=== PATIENT | male | born 1965 | race Caucasian/White ===

== ENCOUNTER → 2017-03-10 | Outpatient (CLI) | payer OTHER ==
[~2017-03-10] MED LIST: NO MEDICATIONS
--- NOTE | ~2017-03-10 | MY26 ---
[facility] A Service of [facility] RADIOLOGY TEXT RESULTS PATIENT: FANNY AMAYA LOCATION: [facility] : 67 UNIT #: [id number] AGE: [address]: Bebo Trejo MD SEX: M ORDER DR: [id number] [facility] [address] [place], [place] [address] [id number] O MR#: [id number] #: [id number] NAME: FANNY AMAYA : 1965 SEX: M STUDY DATE/TIME: 03/10/2017 15:06 UNIT: [facility] ROOM: STUDY DESCRIPTION: [facility] DIAGNOSTIC W/ CAD BILAT Attending Physician: Bebo Trejo M.D. Ordering Physician: Bebo Trejo M.D. Primary Care Physician: Bebo Trejo M.D. MEDICAL IMAGING REPORT This report is preliminary unless electronic signature is present EXAMINATION Bilateral digital diagnostic mammogram with CAD DATE 03/10/2017 HISTORY Palpable abnormality and tenderness in right breast for 6 weeks. COMPARISON None. FINDINGS CC and MLO views were obtained of the right breast and MLO views obtained of left breast. The study was performed utilizing digital technique and reviewed with an FDA-approved CAD device. The left breast is fatty replaced. The right breast, there is scattered fibroglandular tissue in a somewhat nodular pattern in the subareolar right breast. It has a more nodular configuration on the CC view, but on the MLO view, it has more effacement, and normal appearing benign soft tissue configuration, consistent with nodular type gynecomastia. Targeted diagnostic ultrasound was performed of the right breast in the subareolar region. A oval somewhat macrolobular hypoechoic soft tissue density is seen measuring up to 2.5 cm, which, in concert with the mammogram today, has an appearance of benign gynecomastia. No associated architectural distortion or clustered microcalcification is seen. IMPRESSION 1. BIRADS 2. Benign findings. Right breast findings has mammographic [facility] A Service [facility] RADIOLOGY TEXT RESULTS PATIENT: FANNY AMAYA LOCATION: [facility] : 67 UNIT #: [id number] AGE: [address]: Bebo Trejo MD SEX: M ORDER DR: and sonographic configuration most compatible with benign male gynecomastia. Any further management should be based upon clinical assessment, including but not limited to evaluation of medication causes, endocrine/metabolic causes. The patient has stated a desire for potential surgical excision, given the pain and cosmetic changes associated with it. Referral for surgical consultation can be performed by the referring physician's office. Patients over the age of 40 are entered into a reminder system with target due date for the next mammogram. A result letter will also be sent to the patient. BIRADS: 2 Benign Finding Dictated by... Tammie Mayo M.D. THIS IS AN ELECTRONICALLY VERIFIED REPORT Tammie Mayo M.D. at 03/11/2017 8:31 AM WEN/juan j TD: 03/11/2017 00:34 JOB #: [id number] MEDICAL IMAGING REPORT Page 1 of 1 COPY
--- NOTE | ~2017-03-10 | US24 ---
[facility] A Service [facility] RADIOLOGY TEXT RESULTS PATIENT: FANNY AMAYA LOCATION: [facility] : 67 UNIT #: [id number] AGE: [address]: Bebo Trejo MD SEX: M ORDER DR: [id number] [address] [address] [id number] O MR#: [id number] Acc #: [id number] NAME: FANNY AMAYA : 1965 SEX: M STUDY DATE/TIME: 03/10/2017 15:12 UNIT: [facility] ROOM: STUDY DESCRIPTION: US Breast Unilateral Attending Physician: Bebo Trejo M.D. Ordering Physician: Bebo Trejo M.D. Primary Care Physician: Bebo Trejo M.D. MEDICAL IMAGING REPORT This report is preliminary unless electronic signature is present EXAMINATION Diagnostic right breast ultrasound. DATE 03/10/2017 HISTORY Palpable abnormality in the right breast for approximately 6 weeks with tenderness. COMPARISON Bilateral diagnostic mammogram 03/10/2017. FINDINGS Targeted sonographic imaging was performed of the subareolar right breast. Please refer to the diagnostic mammogram report from the same date for full description of mammographic and sonographic findings and recommendations. IMPRESSION 1. BIRADS 2. Benign findings. Please refer to the diagnostic mammogram report from this same date for full description of mammographic and sonographic findings and recommendations. Patients over the age of 40 are entered into a reminder system with target due date for the next mammogram. A result letter will also be sent to the patient. BIRADS: 2 Benign Finding Dictated by... Tammie Mayo M.D. [facility] A [facility] RADIOLOGY TEXT RESULTS PATIENT: FANNY AMAYA LOCATION: [facility] : 67 UNIT #: [id number] AGE: [address]: Bebo Trejo MD SEX: M ORDER DR: THIS IS AN ELECTRONICALLY VERIFIED REPORT Tammie Mayo M.D. at 03/11/2017 8:31 AM WEN/juan j TD: 03/11/2017 00:23 JOB #: [id number] MEDICAL IMAGING REPORT Page 1 of 1 COPY
== END | disposition home or self-care (01) ==
LOC: CMAM 14:25
DX: N63 Unspecified lump in breast (principal); N64.4 Mastodynia
CPT/HCPCS: 76641; G0204